=== PATIENT | male | born 1990 | race Caucasian/White ===

== ENCOUNTER 2016-07-21 22:00 | Emergency (ER) | payer OTHER ==
[~2016-07-21] VITALS: Ht 177.8 cm; Wt 88.0 kg
[2016-07-21 22:04] VITALS: BP 133/78; PULSE 100; TEMP 36.8; O2SAT 100; Ht 177.8 cm; Wt 88.0 kg
[2016-07-21] MEDS ORDERED: METH5SOL PO (23:03)
[2016-07-21] MEDS ORDERED: ALBU18002 INH (23:03)
== END 2016-07-21 23:40 | disposition left against medical advice (07) ==
LOC: C.EDB 22:01 → C.EDC 23:40
DX: R10.9 Unspecified abdominal pain (principal)

== ENCOUNTER → 2016-09-30 | Outpatient (CLI) | payer OTHER ==
[~2016-09-30] MED LIST: ALBU18002 INH; CEPH500C PO; CLX/20 PO; GABA1CAP4 PO; METH5SOL PO; PRAZ2CAP2 PO; QUET5TAB PO
[2016-09-30 18:11] LABS: URINE APPEARANCE CLEAR (CLEAR); URINE BILIRUBIN NEG (NEG); URINE COLOR YELLOW; URINE EPITHELIAL CELL AUTO 0-5 /lpf (0-5); URINE NITRITE NEG (NEG); URINE SPECIFIC GRAVITY 1.021 (1.000-1.030); UROBILINOGEN NEG (NEG); ZZUR CULT IF INDIC CLEAN CATCH NO
[2016-09-30 18:13] LABS: MANUAL MICROSCOPIC REQUIRED? NO; REVIEW REQ? NO
== END | disposition home or self-care (01) ==
LOC: C.LABBFT 15:29
PROVIDERS: ATTEND Nurse Practitioner
DX: R10.9 Unspecified abdominal pain (principal)

== ENCOUNTER → 2016-10-11 | Outpatient (CLI) | payer OTHER ==
[2016-10-11 18:54] LABS: BASO % 0.3 %; BASO ABS # 0.03 K/uL (0-0.2); COMPLETE YES; HEMATOCRIT 47.8 % (42-52); IG% 0.2 %; LYMPH % 32.6 %; LYMPH ABS # 3.06 K/uL (1.2-3.4); MEAN CELL VOLUME 92.6 fL (80-100); MEAN CORPUSCULAR HEMOGLOBIN 30.8 pg (25-34); MEAN CORPUSCULAR HGB CONC 33.3 g/dl (32-36); MEAN PLATELET VOLUME 11.1 fL (7.4-10.4); MONO % 8.7 %; NEUT % 57.2 %; PLATELET COUNT 269 K/uL (130-400); RED BLOOD COUNT 5.16 M/uL (4.7-6.1); WHITE BLOOD COUNT 9.38 K/uL (4.8-10.8)
[2016-10-11 19:01] LABS: ALT/SGPT 108 U/L (12-78); AST/SGOT 42 U/L (15-37); BLOOD UREA NITROGEN 14 mg/dl (7-18); BUN/CREATININE RATIO 17.2 (10-20); CARBON DIOXIDE 31 mmol/L (21-32); CHLORIDE 103 mmol/L (98-107); GLUCOSE 96 mg/dl (70-99); SODIUM 140 mmol/L (136-145)
[2016-10-11 19:04] LABS: ALB/GLOB RATIO 1.1 (0.9-2); ALKALINE PHOSPHATASE 83 U/L (45-117)
== END ==
LOC: C.LABSPEC 17:53
PROVIDERS: ATTEND Internal Medicine
DX: M54.9 Dorsalgia, unspecified (principal)

== ENCOUNTER → 2016-10-18 | Outpatient (CLI) | payer OTHER ==
--- NOTE | 2016-10-18 07:46 | DIAGNOSTIC IMAGING REPORT ---
L-SPINE MIN 4 VIEWS ROUTINE CLINICAL HISTORY: Low back pain COMPARISON STUDY: No previous studies for comparison. FINDINGS: No acute fractures or traumatic subluxations are visualized. No destructive lesions are evident. There is no pathologic bowel dilatation. Very slight T12 wedging, may be developmental. There is a left pelvic basin calcification which while nonspecific likely represents a phlebolith. IMPRESSION: No fractures, subluxations, or destructive lesions are visualized. Electronically signed by: Robb Cheema M.D. 10/18/2016 7:44 AM Dictated Date/Time: 10/18/2016 7:43 AM
--- NOTE | 2016-10-18 07:47 | DIAGNOSTIC IMAGING REPORT ---
THORACIC SPINE 3 VIEWS ROUTINE CLINICAL HISTORY: Back pain and COMPARISON STUDY: No previous studies for comparison. FINDINGS: The paraspinal line is not displaced. No fractures, subluxations, or destructive lesions are visualized. IMPRESSION: Unremarkable conventional radiographic evaluation of the thoracic spine. Electronically signed by: Robb Cheema M.D. 10/18/2016 7:45 AM Dictated Date/Time: 10/18/2016 7:45 AM
== END | disposition home or self-care (01) ==
LOC: C.RAD 07:14
PROVIDERS: ATTEND Internal Medicine
DX: M54.9 Dorsalgia, unspecified (principal)

== ENCOUNTER 2016-11-04 21:02 | Emergency (ER) | payer OTHER ==
[~2016-11-04] VITALS: Ht 177.8 cm; Wt 92.2 kg
[~2016-11-04 21:02] MED LIST changes: -CEPH500C PO; -CLX/20 PO; -GABA1CAP4 PO; -PRAZ2CAP2 PO; -QUET5TAB PO
[2016-11-04 21:04] VITALS: TEMP 36.7; Ht 177.8 cm; Wt 92.2 kg
[2016-11-04] MEDS ORDERED: GABA1CAP4 PO (21:17)
[2016-11-04] MEDS ORDERED: QUET5TAB PO (21:17)
[2016-11-04] MEDS ORDERED: PRAZ2CAP2 PO (21:17)
[2016-11-04] MEDS ORDERED: CLX/20 PO (21:17)
--- NOTE | 2016-11-04 21:27 | EMERGENCY ROOM VISIT NOTE ---
ED Visit Note First contact with patient: 21:13 CHIEF COMPLAINT: Ankle pain HISTORY OF PRESENT ILLNESS: This 25-year-old male patient presents to the emergency department ambulatory after sustaining an injury to the right ankle and foot with a twisting, inversion motion which occurred at work today when he twisted his ankle. Complains of moderate swelling and pain. The patient complains of pain along the outside of the ankle. The patient does have pain of the foot. The patient rates the pain as sharp and 8/10. There was no audible pop. The patient is able to bear weight on the foot. Constant pain, worse with movement, weight bearing, and the dependent position. No knee pain, the patient is able to move their toes. No numbness or weakness of the foot, no laceration. The patient has had a previous injury to this ankle, fracture as an infant and sprain as a child. The patient has taken nothing for the pain. The patient denies any other injury. REVIEW OF SYSTEMS: A 6 system review of systems was completed with positives and pertinent negatives listed in the HPI. ALLERGIES: Tylenol, chlorpromazine, fentanyl, ibuprofen, Toradol MEDICATIONS: Celexa, Neurontin, Seroquel, albuterol PMH: asthma SOCIAL HISTORY: The patient is employed at [employer] PHYSICAL EXAM: Vital Signs: Reviewed Nurse's notes, vital signs stable. GENERAL : This is a 25-year-old male, no acute distress, but appears in pain, well- developed, well-nourished. MENTAL STATUS: Alert, oriented to person place and time, and cooperative. MUSCULOSKELETAL: The right ankle is swollen and tender over the lateral malleolus, but the skin is intact and there is no ligamentous instability. There is minimal fifth metatarsal tenderness. There is no tenderness over the rest of the foot. There is no calf or tibia/fibular tenderness. There is no visual deformity. The foot and toes are warm and well- perfused. Dorsalis pedis pulse 2+. Sensation to pain and light touch is intact. Capillary refill less than 2 seconds. EMERGENCY DEPARTMENT COURSE: I examined the patient. X-rays of the right ankle and foot were reviewed by myself and read by radiology and reveal no fracture or dislocation. A gel splint was applied to the ankle under my direction and the position was satisfactory. Neurovascular status was rechecked and intact. The patient was instructed on the use of crutches. The patient was discharged home in good condition. RIGHT FOOT MIN 3 VIEWS ROUTINE, RIGHT ANKLE MIN 3 VIEWS ROUTINE CLINICAL HISTORY: right foot pain, injury Right. Right ankle pain. COMPARISON STUDY: None. FINDINGS: No fracture or dislocation. Soft tissues are unremarkable. No radiopaque foreign bodies. IMPRESSION: No fracture or dislocation within the right ankle or right foot. RIGHT FOOT MIN 3 VIEWS ROUTINE, RIGHT ANKLE MIN 3 VIEWS ROUTINE CLINICAL HISTORY: right foot pain, injury Right. Right ankle pain. COMPARISON STUDY: None. FINDINGS: No fracture or dislocation. Soft tissues are unremarkable. No radiopaque foreign bodies. IMPRESSION: No fracture or dislocation within the right ankle or right foot. Problem List Medical Problems: (1) Alcohol abuse Status: Chronic (2) Anxiety Status: Chronic (3) Depression Status: Chronic (4) Hepatitis C Status: Chronic (5) PTSD (post-traumatic stress disorder) Status: Chronic Current/Historical Medications Scheduled Citalopram (Citalopram Hydrobromide), 20 MG PO DAILY Gabapentin (Gabapentin), 300 MG PO TID Prazosin Hcl (Prazosin), 2 MG PO DAILY Quetiapine Fumarate (Seroquel), 50 MG PO DAILY Scheduled PRN Albuterol Sulfate (Proair Respiclick), 2 PUFFS INH UD PRN for Asthma Symptoms Allergies Coded Allergies: Acetaminophen (Verified Allergy, Intermediate, GI SYMPTOMS, 11/04/16) Fentanyl (Unverified Allergy, Intermediate, sick, 11/04/16) Ibuprofen (Verified Allergy, Intermediate, "head feels like its on fire", 11/04/16) Ketorolac Tromethamine (Unverified Allergy, Mild, flushed, 11/04/16) Chlorpromazine (Unverified Allergy, Unknown, UNKNOWN, 11/04/16) Vital Signs Date Time Temp Pulse Resp B/P (MAP) Pulse Ox O2 Delivery O2 Flow Rate FiO2 11/04/16 22:25 72 20 128/80 98 11/04/16 21:04 36.7 76 18 121/78 95 Room Air Departure Information Impression Primary Impression: Ankle sprain Dispostion Home / Self-Care Condition GOOD Referrals Willie Hopkins M.D. (PCP) Robinson Albright, DO Forms HOME CARE DOCUMENTATION FORM, IMPORTANT VISIT INFORMATION, Work Instructions Additional Instructions: Must wear splint and use crutches 5 days Patient Instructions Ankle Sprain, My [facility] Additional Instructions Ice and elevate ankle for swelling and pain. Crutches with weight bearing as tolerated. Wear the splint 7-14 days or until pain subsides. If ankle has not improved within 5-7 days, follow-up family doctor or orthopedic surgeon for further evaluation and management. Contact an employer approved worker's compensation doctor for clearance to full duty. Problem Qualifiers Primary Impression: Ankle sprain Encounter type: initial encounter
--- NOTE | 2016-11-04 22:05 | DIAGNOSTIC IMAGING REPORT ---
RIGHT FOOT MIN 3 VIEWS ROUTINE, RIGHT ANKLE MIN 3 VIEWS ROUTINE CLINICAL HISTORY: right foot pain, injury Right. Right ankle pain. COMPARISON STUDY: None. FINDINGS: No fracture or dislocation. Soft tissues are unremarkable. No radiopaque foreign bodies. IMPRESSION: No fracture or dislocation within the right ankle or right foot. Electronically signed by: Dandy Robles M.D. 11/04/2016 10:03 PM Dictated Date/Time: 11/04/2016 10:00 PM
[2016-11-04 22:25] VITALS: BP 128/80; PULSE 72; O2SAT 98
== END 2016-11-04 22:25 | disposition home or self-care (01) ==
LOC: C.EDB 21:04 → C.EDD 22:25
DX: S93.401A Sprain of unspecified ligament of right ankle, initial encounter (principal); X50.1XXA Overexertion from prolonged static or awkward postures, initial encounter; Y92.511 Restaurant or cafe as the place of occurrence of the external cause; Y99.0 Civilian activity done for income or pay; J45.909 Unspecified asthma, uncomplicated; F41.9 Anxiety disorder, unspecified; F32.9 Major depressive disorder, single episode, unspecified; F43.10 Post-traumatic stress disorder, unspecified; B19.20 Unspecified viral hepatitis C without hepatic coma; Z79.899 Other long term (current) drug therapy

== ENCOUNTER 2017-03-01 12:38 | Emergency (ER) | payer OTHER ==
[~2017-03-01] VITALS: Ht 177.8 cm; Wt 97.8 kg
[~2017-03-01 12:38] MED LIST changes: +CLX/20 PO; +GABA1CAP4 PO; -METH5SOL PO; +PRAZ2CAP2 PO; +QUET5TAB PO
[2017-03-01 12:42] VITALS: BP 125/65; TEMP 37.3; Ht 177.8 cm; Wt 97.8 kg
[2017-03-01] MEDS ORDERED: CEPH500C PO (13:28)
[2017-03-01] MEDS ORDERED: XYLOCAINE 1%/SOD BICARB 20 ML VIAL INFIL ONE (13:30)
[2017-03-01] MEDS ORDERED: DIPHTHERIA/TETANUS/PERTUSSIS 0.5 ML SYR/VIAL IM. ONE (13:30)
--- NOTE | 2017-03-01 13:30 | EMERGENCY ROOM VISIT NOTE ---
ED Visit Note First contact with patient: 13:10 CHIEF COMPLAINT: Finger laceration HISTORY OF PRESENT ILLNESS: This 26-year-old male patient presents to the emergency department approximately one hour after cutting the right index finger on a zippo knife. The patient states he recently moved into a new apartment, where the previous tenants ended up in fpc. He states he is going through their things to throw them out. The patient states there was apparently a zippo knife in a trash bag, and when he lifted the trash bag, he experienced a very superficial cut on the proximal aspect of his right index finger. The patient does have full range of motion, denies any numbness or tingling. The bleeding was easily controlled and the finger is no longer bleeding at this time. The patient denies weakness of the finger. The patient rates the pain as throbbing and sharp and 5/10. The patient denies any other injuries. The patient's tetanus shot is not up to date. REVIEW OF SYSTEMS: A 6 system review of systems was completed with positives and pertinent negatives listed in the HPI. ALLERGIES: Acetaminophen, chlorpromazine, fentanyl, ibuprofen, Toradol MEDICATIONS: Gabapentin PMH: Anxiety SOCIAL HISTORY: The patient lives locally with his fiance. He states he does smoke cigars, a few per day. Denies drug or alcohol use. PHYSICAL EXAM: Vital Signs: Reviewed Nurse's notes, vital signs stable. GENERAL : This is a 26-year-old female, in no acute distress, well developed, well nourished. SKIN: There is a very superficial 1.5 cm long laceration on the anterior aspect of the right second finger. The edges do not gape apart with traction. There is no foreign material in the wound and it looks clean. There is no active bleeding at this time. No deep structures such as tendons, bones, or significant blood vessels are seen in the base of the wound. Extension and flexion of the finger is full and strong. Full range of motion of the wrist and other fingers. Capillary refill less than 2 seconds. Normal sensation to light and sharp touch. EMERGENCY DEPARTMENT COURSE: I examined the patient. I discussed with him that my recommendation at this time is Dermabond. 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 I discussed with the patient the risks associated with stitches, especially when they are unnecessary, and the patient states he understands the risks including increasing risk of infection, and would like to proceed with stitches. Verbal consent was obtained to perform the procedure. Using sterile technique the wound was cleansed with Betadine. 3 ml of 1% buffered lidocaine was used to perform a digital block to anesthetize the patient. The area was sterilely draped. Once the patient was anesthetized, the wound was copiously irrigated under pressure with sterile saline. The wound was explored and there were no deep structures injured. The laceration was not through subcutaneous tissue. The laceration was repaired using 2 simple interrupted 5-0 nylon sutures. The patient tolerated the procedure well. Hemostasis was achieved. The area was cleaned with sterile saline and dressed with bacitracin ointment and bandage. The patient was given a tetanus booster. The patient was discharged home in good condition. DIFFERENTIAL DIAGNOSIS: Laceration, infection, cellulitis, foreign body, and others DIAGNOSIS: Finger laceration DISCHARGE INSTRUCTIONS & TREATMENT: You have received 2 sutures on your right index. These sutures are NOT dissolvable and WILL need to be removed by a health care provider in 10-12 days. You can return to the Emergency Department or contact your Primary Care Provider to have the sutures removed. You were prescribed Keflex to be taken 4 times per day. This is an antibiotic. All antibiotics have the potential to cause diarrhea. Stop this medication and contact a medical provider if you were to develop any significant adverse side effects including: wheezing, shortness of breath, passing out, vomiting, or a diffuse rash. Always take antibiotics as directed and COMPLETE the ENTIRE course regardless of the improvement of your symptoms. Proper wound care is essential for adequate wound healing and infection prevention. You can shower and clean the wound with soap and water. Do not scour over the wound, pat dry with a towel. Do not submerse the wound (i.e. bathe or dish wash) until the sutures have been removed. You can use an antibiotic ointment with a dressing over the wound for the next 3-4 days. After this time you may leave the wound dry and open to the air. If crust develops over the wound you can use a Q-tip to apply a 1:1 peroxide:water solution to clean the wound. Look for signs of infection of the wound including: increased pain, swelling, foul discharge, streaking, or increased temperature. If any of these are noticed you should return to the Emergency Department for further assessment and treatment. As with any laceration you may have received nerve damage to the surrounding tissues. This damage may or may not be permanent. You should keep the area covered with sunscreen for the first 6 months to 1 year when at risk for exposure to help minimize scarring. You can also use scar reducing creams or Vitamin E oil to help minimize scarring. For pain control, you can use the following izbr-qvl-bclflzp medicines (if >12 yo): - Regular strength (325mg/tab) Tylenol (acetaminophen) 2 tabs every 4-6 hours as needed. Do not exceed 9 tablets in a 24 hour period. Avoid taking more than 3 grams (3000 mg) of Tylenol per day. This includes any other sources of acetaminophen you may take on a regular basis. - Regular strength (200 mg/tab) Advil (ibuprofen) 1-2 tabs every 4-6 hours as needed. Do not exceed a dose of 2400 mg per day. Return to the emergency department if your symptoms worsen despite treatment course outlined above. Problem List Medical Problems: (1) Alcohol abuse Status: Chronic (2) Anxiety Status: Chronic (3) Depression Status: Chronic (4) Hepatitis C Status: Chronic (5) PTSD (post-traumatic stress disorder) Status: Chronic Current/Historical Medications Scheduled Cephalexin Monohydrate (Keflex), 500 MG PO QID Gabapentin (Gabapentin), 300 MG PO TID Scheduled PRN Albuterol Sulfate (Proair Respiclick), 2 PUFFS INH UD PRN for Asthma Symptoms Allergies Coded Allergies: Acetaminophen (Verified Allergy, Intermediate, GI SYMPTOMS, 03/01/17) Fentanyl (Unverified Allergy, Intermediate, sick, 03/01/17) Ibuprofen (Verified Allergy, Intermediate, "head feels like its on fire", 03/01/17) Ketorolac Tromethamine (Unverified Allergy, Mild, flushed, 03/01/17) Chlorpromazine (Unverified Allergy, Unknown, UNKNOWN, 03/01/17) Vital Signs Date Time Temp Pulse Resp B/P (MAP) Pulse Ox O2 Delivery O2 Flow Rate FiO2 03/01/17 14:31 69 18 97 03/01/17 12:42 37.3 76 18 125/65 96 Room Air Medications Administered Medications (Trade) Dose Ordered Sig/Josefa Route Start Time Stop Time Status Last Admin Dose Admin Diphtheria/ Pertussis/Tetanus Vacc (Adacel Inj) 0.5 ml ONCE ONCE IM. 03/01/17 13:30 03/01/17 13:31 DC 03/01/17 13:29 0.5 ML Departure Information Impression Primary Impression: Laceration of right index finger Dispostion Home / Self-Care Condition GOOD Prescriptions Cephalexin Monohydrate (Keflex) 500 Mg Cap 500 MG PO QID for 10 Days, #40 CAP Prov: Padma Flores PA-C 03/01/17 Referrals Willie Hopkins M.D. (PCP) Patient Instructions ED Laceration Ext Sutr Stap Tape, [employer] Additional Instructions You have received 2 sutures on your right index. These sutures are NOT dissolvable and WILL need to be removed by a health care provider in 10-12 days. You can return to the Emergency Department or contact your Primary Care Provider to have the sutures removed. You were prescribed Keflex to be taken 4 times per day. This is an antibiotic. All antibiotics have the potential to cause diarrhea. Stop this medication and contact a medical provider if you were to develop any significant adverse side effects including: wheezing, shortness of breath, passing out, vomiting, or a diffuse rash. Always take antibiotics as directed and COMPLETE the ENTIRE course regardless of the improvement of your symptoms. Proper wound care is essential for adequate wound healing and infection prevention. You can shower and clean the wound with soap and water. Do not scour over the wound, pat dry with a towel. Do not submerse the wound (i.e. bathe or dish wash) until the sutures have been removed. You can use an antibiotic ointment with a dressing over the wound for the next 3-4 days. After this time you may leave the wound dry and open to the air. If crust develops over the wound you can use a Q-tip to apply a 1:1 peroxide:water solution to clean the wound. Look for signs of infection of the wound including: increased pain, swelling, foul discharge, streaking, or increased temperature. If any of these are noticed you should return to the Emergency Department for further assessment and treatment. As with any laceration you may have received nerve damage to the surrounding tissues. This damage may or may not be permanent. You should keep the area covered with sunscreen for the first 6 months to 1 year when at risk for exposure to help minimize scarring. You can also use scar reducing creams or Vitamin E oil to help minimize scarring. For pain control, you can use the following jhza-vcl-gbroojw medicines (if >12 yo): - Regular strength (325mg/tab) Tylenol (acetaminophen) 2 tabs every 4-6 hours as needed. Do not exceed 9 tablets in a 24 hour period. Avoid taking more than 3 grams (3000 mg) of Tylenol per day. This includes any other sources of acetaminophen you may take on a regular basis. - Regular strength (200 mg/tab) Advil (ibuprofen) 1-2 tabs every 4-6 hours as needed. Do not exceed a dose of 2400 mg per day. Return to the emergency department if your symptoms worsen despite treatment course outlined above. Problem Qualifiers Primary Impression: Laceration of right index finger Encounter type: initial encounter Damage to nail status: without damage Foreign body presence: without foreign body Qualified Codes: S61.210A - Laceration without foreign body of right index finger without damage to nail, initial encounter
[2017-03-01 14:31] VITALS: PULSE 69; O2SAT 97
== END 2017-03-01 14:33 | disposition home or self-care (01) ==
LOC: C.EDB 12:40 → C.EDD 14:33
DX: S61.210A Laceration without foreign body of right index finger without damage to nail, initial encounter (principal); W26.0XXA Contact with knife, initial encounter; Y93.89 Activity, other specified; Y92.039 Unspecified place in apartment as the place of occurrence of the external cause; Z79.899 Other long term (current) drug therapy; F41.9 Anxiety disorder, unspecified; F17.290 Nicotine dependence, other tobacco product, uncomplicated; F10.10 Alcohol abuse, uncomplicated; F32.9 Major depressive disorder, single episode, unspecified; B19.20 Unspecified viral hepatitis C without hepatic coma; F43.10 Post-traumatic stress disorder, unspecified; Z23 Encounter for immunization

== ENCOUNTER 2017-07-04 14:49 | Emergency (ER) | payer OTHER ==
[~2017-07-04] VITALS: Ht 177.8 cm; Wt 98.5 kg
[~2017-07-04 14:49] MED LIST changes: -CLX/20 PO; -PRAZ2CAP2 PO; -QUET5TAB PO
[2017-07-04 15:06] VITALS: Ht 177.8 cm; Wt 98.5 kg
[2017-07-04 19:08] LABS: INFLUENZA B ANTIGEN Neg for Influ B (NEG)
--- NOTE | 2017-07-04 19:32 | DIAGNOSTIC IMAGING REPORT ---
CHEST 2 VIEWS ROUTINE CLINICAL HISTORY: Cough COMPARISON STUDY: 10/29/2015 FINDINGS: The cardiac and mediastinal contours are normal. There is no evidence of focal pulmonary consolidation. There is no evidence of failure. No pleural effusions are visualized.[ IMPRESSION: No active disease in the chest. Electronically signed by: Robb Cheema M.D. 07/04/2017 7:30 PM Dictated Date/Time: 07/04/2017 7:30 PM
[2017-07-04] MEDS ORDERED: OSELTAMIVIR PHOSPHATE 75 MG CAP PO STA (20:01)
[2017-07-04] MEDS ORDERED: OSEL75CA23 PO (20:02)
[2017-07-04 20:33] VITALS: BP 133/60; PULSE 90; TEMP 36.7; O2SAT 98
--- NOTE | 2017-07-05 00:14 | EMERGENCY ROOM VISIT NOTE ---
History Report prepared by Lakia: Emanuel Denis Under the Supervision of: Dr. Bryan Ames M.D. First contact with patient: 18:28 Chief Complaint: FLU LIKE SX Stated Complaint: SICK WITH POSSIBLE FLU History of Present Illness The patient is a 26 year old male who presents to the Emergency Room with complaints of influenza like symptoms that onset three days ago. The patient states that three days ago his symptoms first began with fatigue. Yesterday, his symptoms worsened to body shakes, weakness, and body aches. He does have a producing cough at this time, and he recorded his highest temperature at 100.1 degrees F. The patient is an everyday smoker and has a history fo Asthma. The patient and his note that they have a 3-month old child at home and would like to have a flu-swab done. 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 A total of 10 systems reviewed and were otherwise negative. Past Medical & Surgical Medical Problems: (1) Alcohol abuse (2) Anxiety (3) Depression (4) Hepatitis C (5) PTSD (post-traumatic stress disorder) Family History Heart disease Social History Smoking Status: Never Smoker Alcohol Use: occasionally Drug Use: heroin Marital Status: single Housing Status: other Occupation Status: employed Current/Historical Medications Scheduled Gabapentin (Gabapentin), 300 MG PO TID Oseltamivir Phosphate (Tamiflu), 75 MG PO BID Scheduled PRN Albuterol Sulfate (Proair Respiclick), 2 PUFFS INH UD PRN for Asthma Symptoms Allergies Coded Allergies: Acetaminophen (Verified Allergy, Intermediate, GI SYMPTOMS, 03/01/17) Fentanyl (Unverified Allergy, Intermediate, sick, 03/01/17) Ibuprofen (Verified Allergy, Intermediate, "head feels like its on fire", 03/01/17) Ketorolac Tromethamine (Unverified Allergy, Mild, flushed, 03/01/17) Chlorpromazine (Unverified Allergy, Unknown, UNKNOWN, 03/01/17) Physical Exam Vital Signs Date Time Temp Pulse Resp B/P (MAP) Pulse Ox O2 Delivery O2 Flow Rate FiO2 07/04/17 20:33 36.7 90 18 133/60 98 07/04/17 15:06 37.0 69 18 137/86 96 Room Air Physical Exam Constitutional: Vital signs reviewed. Eyes: Pupils are equal round reactive to light. Conjunctiva are noninjected. ENT: Pharynx is clear without erythema or exudate. Mucous membranes are moist. Neck supple without meningeal signs. Respiratory: Clear to auscultation bilaterally. Breath sounds are equal bilaterally. No wheezing. Cardiovascular: Regular rate and rhythm. No rubs or gallops. GI: Soft, nondistended and nontender. Bowel sounds are present. Musculoskeletal: No peripheral edema. No lower extremity tenderness. Integumentary: No cyanosis. Neurological: The patient is awake and alert. No focal deficits. Psychiatric: Normal affect. Medical Decision & Procedures ER Provider Diagnostic Interpretation: Radiology results as stated below per my review and the radiologist's interpretation: CHEST 2 VIEWS ROUTINE CLINICAL HISTORY: Cough COMPARISON STUDY: 10/29/2015 FINDINGS: The cardiac and mediastinal contours are normal. There is no evidence of focal pulmonary consolidation. There is no evidence of failure. No pleural effusions are visualized.[ IMPRESSION: No active disease in the chest. Electronically signed by: Robb Cheema M.D. 07/04/2017 7:30 PM Dictated Date/Time: 07/04/2017 7:30 PM Laboratory Results Test 07/04/17 18:20 Influenza Type A Antigen Neg for Influ A (NEG) Influenza Type B Antigen Neg for Influ B (NEG) Laboratory results as reviewed by me. Medications Administered Medications (Trade) Dose Ordered Sig/Josefa Route Start Time Stop Time Status Last Admin Dose Admin Oseltamivir Phosphate (Tamiflu Cap) 75 mg NOW STAT PO 07/04/17 20:01 07/04/17 20:02 DC 07/04/17 20:30 75 MG ED Course 1830: The patient was evaluated in room B11B. A complete history and physical exam was performed. 1958: I checked on the patient today and discussed his test results. Upon reevaluation, the patient appeared to have improvement of his symptoms. He verbalized agreement of the treatment plan. The patient was discharged home. 2000: Ordered Tamiflu Cap 75 mg PO. Medical Decision This is a 26-year-old male presents with flulike symptoms. Differential diagnosis includes influenza, bronchitis, pneumonia, URI. I did perform a limited focused review of portions of the patient's old chart on the electronic medical record. The patient has had no recent pertinent visits to this hospital. I did evaluate the patient as noted above. I did order and personally review the patient's chest x-ray as described above. There is no evidence of pneumonia. A rapid flu test was negative. The patient, however, has symptoms consistent with influenza. This may be a false negative. He does have a history of asthma and has a at home and so he did wish to be placed on Tamiflu. He was started on Tamiflu here and discharged with a prescription for Tamiflu. He was advised follow with his doctor and given a work note. He was given return instructions as outlined below. Medication Reconcilliation Current Medication List: was personally reviewed by me Blood Pressure Screening Patient's blood pressure: Elevated blood pressure Impression Primary Impression: Influenza Scribe Attestation The scribe's documentation has been prepared under my direct and personally reviewed by me in its entirety. I confirm that the note above accurately reflects all work, treatment, procedures, and medical decision making performed by me. Departure Information Dispostion Home / Self-Care Prescriptions Oseltamivir Phosphate (Tamiflu) 75 Mg Cap 75 MG PO BID, #9 CAP Prov: Bryan Ames M.D. 07/04/17 Referrals Willie Hopkins M.D. (PCP) Forms HOME CARE DOCUMENTATION FORM, IMPORTANT VISIT INFORMATION Patient Instructions My [facility] Additional Instructions You have been examined and treated today on an emergency basis only. This is not a substitute for, or an effort to provide, complete comprehensive medical care. It is impossible to recognize and treat all injuries or illnesses in a single emergency department visit. It is therefore important that you follow up closely with your physician. Call as soon as possible for an appointment. Return for worsening symptoms or if you develop chest pain, shortness breath, vomiting, or any other concerning symptoms.
== END 2017-07-04 20:34 | disposition home or self-care (01) ==
LOC: C.EDB 14:50
DX: R53.83 Other fatigue (principal); R50.9 Fever, unspecified; R05 Cough; R53.1 Weakness; R52 Pain, unspecified; J45.909 Unspecified asthma, uncomplicated; F17.210 Nicotine dependence, cigarettes, uncomplicated; F41.9 Anxiety disorder, unspecified; F32.9 Major depressive disorder, single episode, unspecified; B19.20 Unspecified viral hepatitis C without hepatic coma; F43.10 Post-traumatic stress disorder, unspecified; Z82.49 Family history of ischemic heart disease and other diseases of the circulatory system; Z79.899 Other long term (current) drug therapy

== ENCOUNTER 2017-07-09 17:21 | Emergency (ER) | payer OTHER ==
[~2017-07-09] VITALS: Ht 177.8 cm; Wt 97.9 kg
[~2017-07-09 17:21] MED LIST changes: +OSEL75CA23 PO
[2017-07-09 17:24] VITALS: Ht 177.8 cm; Wt 97.9 kg
[2017-07-09] MEDS ORDERED: ALBUT/IPRATROP 3MG/0.5MG NEB 3 ML VIAL INH STA (17:45)
[2017-07-09] MEDS ORDERED: PROP10TA7 PO (18:00)
--- NOTE | 2017-07-09 18:39 | DIAGNOSTIC IMAGING REPORT ---
CHEST 2 VIEWS ROUTINE CLINICAL HISTORY: COUGH X ONE WEEK COMPARISON STUDY: Chest radiograph July 04, 2017. FINDINGS: There has been interval development of mild left upper lung airspace opacity. No pneumothorax or pleural effusion is noted. Cardiac size is normal. Mediastinal contours are normal. There are possible biapical bullae. IMPRESSION: 1. Interval development of mild left upper lung opacity suggestive of bronchopneumonia. 2. Possible biapical bullae. Electronically signed by: Tee Andres M.D. 07/09/2017 6:38 PM Dictated Date/Time: 07/09/2017 6:35 PM
[2017-07-09] MEDS ORDERED: AZIT-60 PO (18:57)
[2017-07-09] MEDS ORDERED: PRED20TA PO (18:57)
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
[2017-07-09] MEDS ORDERED: AZITHROMYCIN 250 MG TAB PO ONE (19:00)
[2017-07-09] MEDS ORDERED: ALBUTEROL HFA 8 GM INHALER INH ONE (19:00)
[2017-07-09 19:28] VITALS: BP 113/77; PULSE 71; TEMP 36.3; O2SAT 96
== END 2017-07-09 19:29 | disposition home or self-care (01) ==
LOC: C.EDB 17:23 → C.EDA 19:29
DX: J18.1 Lobar pneumonia, unspecified organism (principal); F41.9 Anxiety disorder, unspecified; F39 Unspecified mood [affective] disorder; J45.909 Unspecified asthma, uncomplicated; F17.200 Nicotine dependence, unspecified, uncomplicated; Z79.899 Other long term (current) drug therapy

== ENCOUNTER 2017-07-12 16:51 | Emergency (ER) | payer OTHER ==
[~2017-07-12] VITALS: Ht 177.8 cm; Wt 97.3 kg
[~2017-07-12 16:51] MED LIST changes: -ALBU18002 INH; +AZIT-60 PO; -OSEL75CA23 PO; +PRED20TA PO; +PROP10TA7 PO
[2017-07-12 16:59] VITALS: BP 117/80; PULSE 57; TEMP 36.5; Ht 177.8 cm; Wt 97.3 kg
[2017-07-12 17:02] VITALS: O2SAT 98
[2017-07-12] MEDS ORDERED: AZITHROMYCIN 250 MG TAB PO STA (17:26)
[2017-07-12] MEDS ORDERED: ALBUTEROL HFA 8 GM INHALER INH STA (17:26)
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
== END 2017-07-12 17:42 | disposition home or self-care (01) ==
LOC: C.EDB 16:52 → C.EDD 17:42
DX: J18.1 Lobar pneumonia, unspecified organism (principal); F41.9 Anxiety disorder, unspecified; F32.9 Major depressive disorder, single episode, unspecified; B19.20 Unspecified viral hepatitis C without hepatic coma; F43.10 Post-traumatic stress disorder, unspecified; F17.210 Nicotine dependence, cigarettes, uncomplicated; Z79.899 Other long term (current) drug therapy

== ENCOUNTER 2018-01-25 15:28 | Emergency (ER) | payer OTHER ==
[~2018-01-25] VITALS: Ht 177.8 cm; Wt 107.8 kg
[~2018-01-25 15:28] MED LIST changes: -AZIT-60 PO; +GABA-1219 PO; -GABA1CAP4 PO; -PRED20TA PO
[2018-01-25 15:39] VITALS: TEMP 36.7; Ht 177.8 cm; Wt 107.8 kg
[2018-01-25 16:29] VITALS: O2SAT 99
[2018-01-25] MEDS ORDERED: FAMOTIDINE 20 MG TAB PO ONE (16:30)
[2018-01-25] MEDS ORDERED: DEXAMETHASONE **PF** INJ 10 MG/ML VIAL PO ONE (16:30)
--- NOTE | 2018-01-25 16:40 | EMERGENCY ROOM VISIT NOTE ---
History Report prepared by Lakia: Joceline Younger Under the Supervision of: Dr. Heri Voss M.D. First contact with patient: 16:13 Chief Complaint: ALLERGIC REACTION Stated Complaint: ALLERGIC REACTION Nursing Triage Summary: Pt brought in via EMS. Pt walked into [facility] stating he was stung by a bee under his right eye and that he had already used an EpiPen that was not his. Pt did not receive the answers he would have liked so he then walked to the [facility] office and had them call 911 stating that he was dizzy, SOB and had chest tightness. Upon arrival pt stated that he was having blurry vision in the right eye, chest tightness and SOB. Pt also stated that when his roommate gave him the injection she hit his vape pen and bent the needle before she injected it into his leg "but it got in." EMS attempted IV. History of Present Illness The patient is a 27 year old male who presents to the Emergency Room with complaints of an episode of an allergic reaction beginning 1.5 hours ago. The patient notes he was stung under his R eye by a bee and used his mother's EpiPen about 3 minutes after the sting. He reports he recently discovered his bee allergy, and has used an EpiPen once in the past, but does not have his own EpiPen. He states he is feeling better following the EpiPen, but is still experiencing chest tightness and is having difficulty seeing out of his R eye. He denies any rash or current trouble breathing. Source of History: patient Onset: 1.5 hours ago Position: other (global) Quality: other (allergic reaction) Timing: other (episode) Modifying Factors (Relieving): other (EpiPen) Note: Associated symptom: chest tightness, difficulty seeing out fo R eye. Denies: rash, trouble breathing. Review of Systems See HPI for pertinent positives and negatives. A total of ten systems were reviewed and were otherwise negative. Past Medical & Surgical Medical Problems: (1) Abdominal pain (2) Abdominal pain (3) Abdominal pain (4) Abdominal pain (5) Abdominal pain (6) Abdominal pain (7) Acute abdominal pain (8) Alcohol abuse (9) Alcoholic intoxication (10) Ankle sprain (11) Anxiety (12) Arm pain, right (13) Chest tightness (14) Corneal burn (15) Depression (16) Depression (17) Drug abuse (18) Drug-seeking behavior (19) Elevated liver enzymes (20) Generalized pain (21) GI bleed (22) Hepatitis C (23) Hepatitis C (24) Hepatitis C (25) Influenza (26) Laceration of right index finger (27) Liver disease (28) Lower GI bleed (29) Malaise (30) Malaise and fatigue (31) Medication reaction (32) Mood disorder (33) PTSD (post-traumatic stress disorder) (34) Right sided abdominal pain (35) RLQ abdominal pain (36) Substance abuse (37) Suicidal ideation (38) Suicidal thoughts (39) Thoracic back pain (40) Transaminitis Family History Heart disease Social History Smoking Status: Current Every Day Smoker Alcohol Use: occasionally Drug Use: heroin (sober since 2014 or 2015), other Marital Status: single Housing Status: other Occupation Status: employed Current/Historical Medications Scheduled Escitalopram Oxalate (Lexapro), 5 MG PO DAILY Gabapentin (Gabapentin), 600 MG PO TID Quetiapine Fumarate (Quetiapine Fumarate), 25 MG PO HS Scheduled PRN Epinephrine (Epinephrine), 1 KIT IM DIRECTED PRN for Allergic Reaction Hydroxyzine Pamoate (Vistaril), 50 MG PO HS PRN for Anxiety Allergies Coded Allergies: Fentanyl (Unverified Allergy, Intermediate, sick, 07/12/17) Ibuprofen (Verified Allergy, Intermediate, "head feels like its on fire", 07/12/17) Ketorolac Tromethamine (Unverified Allergy, Mild, flushed, 07/12/17) BEE STING (Verified Allergy, Unknown, Breathing difficulty, 01/25/18) Chlorpromazine (Unverified Allergy, Unknown, UNKNOWN, 07/12/17) Wasp (Verified Allergy, Unknown, Breathing difficulty, 01/25/18) Physical Exam Vital Signs Date Time Temp Pulse Resp B/P (MAP) Pulse Ox O2 Delivery O2 Flow Rate FiO2 01/25/18 17:23 62 20 125/71 97 Room Air 01/25/18 16:29 96 Room Air 01/25/18 16:29 99 Room Air 01/25/18 15:42 70 01/25/18 15:39 95 Room Air 01/25/18 15:39 36.7 68 17 150/75 95 Room Air Physical Exam GENERAL: Awake, alert, well-appearing, in no distress HENT: Normocephalic, atraumatic. Oropharynx unremarkable. EYES: Normal conjunctiva. Sclera non-icteric. Slight R medial inferior eyelid swelling, EOMI, PERRL. NECK: Supple. No nuchal rigidity. RESPIRATORY: Clear to auscultation. No wheezes. Normal respiratory effort. CARDIAC: Normal rate. Normal rhythm. Extremities warm and well perfused. GI: Soft, non-distended. No tenderness to palpation. No rebound or guarding. No masses. RECTAL: Deferred. MUSCULOSKELETAL: Atraumatic. Chest examination reveals no tenderness. LOWER EXTREMITIES: Calves are equal size bilaterally and non-tender. No edema. Slight tenderness of R thigh. NEURO: Normal sensorium. No sensory or motor deficits noted. No facial droop. SKIN: Warm and dry. No rash or jaundice noted. Medical Decision & Procedures Medications Administered Medications (Trade) Dose Ordered Sig/Josefa Route Start Time Stop Time Status Last Admin Dose Admin Diphenhydramine HCl (Benadryl Cap) 50 mg NOW STAT PO 01/25/18 16:19 01/25/18 16:21 DC 01/25/18 16:33 50 MG Dexamethasone Sodium Phosphate (Dexamethasone Inj Pf) 10 mg NOW ONCE PO 01/25/18 16:30 01/25/18 16:31 DC 01/25/18 16:33 10 MG Famotidine (Pepcid Tab) 20 mg NOW ONCE PO 01/25/18 16:30 01/25/18 16:31 DC 01/25/18 16:33 20 MG ECG Per My Interpretation Rate (beats per minute): 78 Rhythm: normal sinus Findings: no ectopy, other (nomral intervals. no ST segment elevation) Comparison ECG Date: 05/04/16 Change: no significant change ED Course 1613: The patient was evaluated in room A9B. A complete history and physical exam was performed. 1619: Ordered Benadryl Cap 50 mg PO. 1630: Ordered Pepcid Tab 20 mg PO, Dexamethasone Sodium Phosphate 10 mg PO. 1729: I reevaluated the patient. Discussed results and discharge instructions: he verbalized understanding and agreement. The patient is ready for discharge. Medical Decision Differential diagnosis: Etiologies such as allergic reaction, anaphylaxis, urticaria, Rogers-Jesús syndrome, toxic epidermal necrolysis, erythema multiforme, cellulitis, as well as others were entertained. Patient presents after being stung just under 2 hours ago by a bee by his report under his right eye. Experience significant chest tightness shortness of breath. States he does have an allergic reaction to bees in the past. Took his mother's epinephrine pen. He did not feel improvement within some chest tightness that is now abating. Denies rash. States his eyes this is a bit swollen is not quite right. There is no stinger left. No significant swelling here. This is inferior and medial aspect of the right lower eyelid. No evidence of corneal injury. He is well-appearing without significant rash. EKG without changes. Doubt ACS. Likely experience some symptoms to the epinephrine he received. Given a dose of steroids and Benadryl here along with Pepcid. Prescribed epinephrine pen. Monitored without relapse here. States he is Vistaril at home that he will utilize his antihistamine going forward. Recommend he continue follow-up with his regular doctor within the next week as scheduled. Discussed return criteria. Medication Reconcilliation Current Medication List: was personally reviewed by me Blood Pressure Screening Patient's blood pressure: Normal blood pressure Blood pressure disposition: Did not require urgent referral Impression Primary Impression: Allergic reaction Scribe Attestation The scribe's documentation has been prepared under my direction and personally reviewed by me in its entirety. I confirm that the note above accurately reflects all work, treatment, procedures, and medical decision making performed by me. Departure Information Dispostion Home / Self-Care Prescriptions Epinephrine (EPINEPHRINE) 0.3 Mg/0.3 Ml Inj 1 KIT IM DIRECTED Y for Allergic Reaction, #1 KIT 0 Refills Prov: Heri Voss M.D. 01/25/18 Referrals Italia Knutson M.D. (PCP) Forms HOME CARE DOCUMENTATION FORM, IMPORTANT VISIT INFORMATION Patient Instructions My [facility] Comic Reply Additional Instructions Please continue to take Vistaril to help with your allergic symptoms. Given a long-acting dose of steroids today. Please fill the prescription for an epinephrine pen and keep it nearby occasional encounter these again or have allergic reaction. Follow-up with your regular doctor in the next week. If you have concerns he may return here at any time. Problem Qualifiers Primary Impression: Allergic reaction Encounter type: initial encounter Qualified Codes: T78.40XA - Allergy, unspecified, initial encounter
[2018-01-25] MEDS ORDERED: HYDR50CA2 PO (16:52)
[2018-01-25] MEDS ORDERED: SRQ25 PO (16:52)
[2018-01-25] MEDS ORDERED: NRN600 PO (16:52)
[2018-01-25] MEDS ORDERED: ESCI1TAB6 PO (16:52)
[2018-01-25] MEDS ORDERED: EPIN0.3I14 IM (16:54)
[2018-01-25 17:23] VITALS: BP 125/71; PULSE 62; O2SAT 97
== END 2018-01-25 17:41 | disposition home or self-care (01) ==
LOC: EDBD 15:28 → C.EDA 15:29
DX: T63.441A Toxic effect of venom of bees, accidental (unintentional), initial encounter (principal); S00.261A Insect bite (nonvenomous) of right eyelid and periocular area, initial encounter; X58.XXXA Exposure to other specified factors, initial encounter; F41.9 Anxiety disorder, unspecified; F32.9 Major depressive disorder, single episode, unspecified; B19.20 Unspecified viral hepatitis C without hepatic coma; F17.200 Nicotine dependence, unspecified, uncomplicated; F11.21 Opioid dependence, in remission; Z88.5 Allergy status to narcotic agent; Z88.6 Allergy status to analgesic agent; Z91.030 Bee allergy status; Z79.899 Other long term (current) drug therapy; Z88.8 Allergy status to other drugs, medicaments and biological substances